=== PATIENT | female | born 1965 | race Caucasian/White ===

== ENCOUNTER 2016-10-02 09:55 | Outpatient (CLI) | payer OTHER ==
--- NOTE | 2016-10-02 11:43 | DIAGNOSTIC IMAGING REPORT ---
PROCEDURE: MR LUMBAR SPINE W/O CONTRAST INDICATION: CERVIALGIA,OA OF HIP,LOW BACK PAIN TECHNIQUE: Noncontrast T1, T2, and STIR sagittal images. T1 and T2 axial images. COMPARISON: None. FINDINGS: L1-2: Normal. L2-3: Normal. L3-4: Normal. L4-5: Normal. L5-S1: Central focal herniated disc at L5-S1. IMPRESSION: 1. Central of focal herniated nucleus pulposus L5-S1
--- NOTE | 2016-10-02 12:00 | DIAGNOSTIC IMAGING REPORT ---
PROCEDURE: MR CERVICAL SPINE W/O CONT INDICATION: CERVICALGIA,OA OF HIP,LOW BACK PAIN TECHNIQUE: Noncontrast T1, T2, and STIR sagittal images. T2 and gradient axial images. COMPARISON: Cervical spine x-ray 06/19/2016. FINDINGS: Normal alignment without acute fracture. There are severe C3-4 and C4-5 disc vertebral degenerative changes. Straightening of the cervical spine. Increased signal at C2, C5 and C6 suggestive of bony hemangiomas. Mild congenital spinal stenosis from C2-3 to C4-5. Normal craniocervical junction. Paraspinal soft tissues are normal. C2-3: Moderate disc space narrowing. No foraminal stenosis. Mild spinal stenosis. C3-4: Small right foraminal disc bulge/spur complex resulting in moderately severe right and mild left foraminal stenosis. Mild congenital spinal stenosis. C4-5: Moderate to broad-based disc bulge/spur complex resulting in severe bilateral foraminal stenosis. There is mild spinal stenosis with some flattening of the cord. C5-6: Normal appearance. C6-7: Minor disc protrusion/spur complex no foraminal or spinal stenosis. Large bilateral foraminal disc bulges resulting in severe bilateral foraminal stenosis. No spinal stenosis. C7-T1: Normal appearance. IMPRESSION: 1. Severe degenerative changes, primarily at C3 foreign C4-5 2. Mild congenital spinal stenosis from C2-3 to C4-5 with mild cord compression of C4-5. 3. C3-4 right foraminal disc bulge with moderately severe right and mild left foraminal stenosis 4. C4-5 disc bulge with severe bilateral foraminal stenosis 5. C6-7 large bilateral foraminal disc bulges resulting in severe bilateral foraminal stenosis
== END 2016-10-02 23:00 ==
LOC: MRI SRH 09:55
DX: M50.223 Other cervical disc displacement at C6-C7 level (principal); M50.221 Other cervical disc displacement at C4-C5 level; M50.21 Other cervical disc displacement, high cervical region; M47.812 Spondylosis without myelopathy or radiculopathy, cervical region; M51.27 Other intervertebral disc displacement, lumbosacral region